=== PATIENT | female | born 1990 | race Hispanic/Latino ===

== ENCOUNTER 2017-06-04 14:14 | Emergency (ER) | payer BC ==
[2017-06-04 14:48] VITALS: BP 109/68; PULSE 66; RESP 20; TEMP 97.8; O2SAT 100
[2017-06-04] MEDS ORDERED: Lidocaine 1% Inj (20ml) INFIL STA (15:02)
[2017-06-04] MEDS ORDERED: Lidocaine 1% Inj (20ml) ONE (15:14)
[2017-06-04] MEDS ORDERED: Bacitracin 500 Units/gm Oint Foilpak UD TOP STA (15:25)
[2017-06-04] MEDS ORDERED: Bacitracin 500 Units/gm Oint Foilpak UD ONE (15:38)
--- NOTE | 2017-06-04 15:38 | C.PDOC ---
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 Patient states she is up to date with tetanus vaccine. Denies numbness/ weakness. No other injuries or complaints. Time Seen by Provider: 06/04/17 14:54 Chief Complaint (Nursing): Abnormal Skin Integrity History Per: Patient History/Exam Limitations: no limitations Past Medical History Reviewed: Historical Data, Nursing Documentation, Vital Signs Vital Signs: Last Vital Signs Temp 97.8 F 06/04/17 14:43 Pulse 66 06/04/17 14:43 Resp 20 06/04/17 14:43 BP 109/68 06/04/17 14:43 Pulse Ox 100 06/04/17 18:10 Surgical History: Tonsillectomy Family History: States: No Known Family Hx - Social History Hx Alcohol Use: No Hx Substance Use: No - Immunization History Hx Tetanus Toxoid Vaccination: Yes (2 year) Hx Influenza Vaccination: No Hx Pneumococcal Vaccination: No Review Of Systems Musculoskeletal: Positive for: Other (finger laceration) Neurological: Negative for: Weakness, Numbness Physical Exam - Physical Exam Appears: Non-toxic, No Acute Distress Skin: Warm, Dry, No Rash Extremity: Capillary Refill (<2 seconds), No Deformity, No Swelling, Other ( Right upper extremity: first digit with 2cm laceration to DIP in diagonal orientation, No foreign body. ) ED Course And Treatment O2 Sat by Pulse Oximetry: 100 (RA) Pulse Ox Interpretation: Normal Progress Note: Patient treated with Keflex. Laceration - Laceration Repair second digit, right hand Wound Length (In cm): 2cm, diagonal Anesthesia: Lidocaine 1% Suture Technique And Material Used: Interrupted, Nylon (3-O) Wound Complexity: Simple (Gauze and splint applied) Disposition Counseled Patient/Family Regarding: Diagnosis, Need For Followup, Rx Given - Disposition Referrals: [facility] [Outside] Disposition: HOME/ ROUTINE Disposition Time: 15:45 Condition: STABLE Additional Instructions: FOLLOW UP WITH YOUR DOCTOR/CLINIC IN 1-2 DAYS SUTURE REMOVAL IN 7-10 DAYS RETURN TO ER IF YOU HAVE CONCERNING SYMPTOMS SUCH FEVER, REDNESS, DISCHARGE Prescriptions: Cephalexin [Keflex] 500 mg PO BID #14 capsule Naproxen 375 mg PO BID PRN #20 tablet PRN Reason: pain Instructions: Laceration Repair Forms: [facility] (Lithuanian) Print Language: MALAGASY - POA Present On Arrival: Falls Or Trauma - Clinical Impression Clinical Impression: Finger laceration - Scribe Statement The provider has reviewed the documentation as recorded by the Scribe (Nakul Lockwood) All medical record entries made by the Scribe were at my direction and personally dictated by me. I have reviewed the chart and agree that the record accurately reflects my personal performance of the history, physical exam, medical decision making, and the department course for this patient. I have also personally directed, reviewed, and agree with the discharge instructions and disposition.
== END 2017-06-04 16:09 | disposition home or self-care (01) ==
LOC: C.ER 14:14
DX: S61.210A Laceration without foreign body of right index finger without damage to nail, initial encounter (principal); W45.8XXA Other foreign body or object entering through skin, initial encounter